=== PATIENT | female | born 1995 | race Caucasian/White ===

== ENCOUNTER 2018-05-03 11:14 | Emergency (ER) | END 2018-05-03 12:50 | disposition home or self-care (01) ==

== ENCOUNTER 2018-06-09 15:04 | Emergency (ER) | END 2018-06-09 16:55 | disposition home or self-care (01) ==

== ENCOUNTER 2018-10-09 17:39 | Emergency (ER) | payer MEDICAID, OTHER ==
[~2018-10-09] VITALS: Ht 147.3 cm; Wt 42.7 kg
[~2018-10-09 17:39] MED LIST: BACI28.34 TOP; CEPH-443 PO; IBUP-1561 PO; NEOM28OI2 TP
[2018-10-09 17:49] VITALS: Ht 147.3 cm; Wt 42.7 kg
[2018-10-09] MEDS ORDERED: LIDOCAINE 1% (MPF) 5 ML VIAL INFIL ONE (22:30)
[2018-10-09] MEDS ORDERED: CEPH-443 PO (23:05)
[2018-10-09] MEDS ORDERED: MUPI22OI2 TOP (23:05)
[2018-10-09] MEDS ORDERED: IBUP800T48 PO (23:05)
[2018-10-09 23:31] VITALS: BP 110/60; PULSE 82; RESP 16
--- NOTE | 2018-10-10 02:29 | ERD ---
ER Documentation Chief Complaint Chief Complaint L big toe pain and swelling HPI History of Present Illness: Patient coming in with complaint of pain/swelling to left great toe. She reports similar episode last year which required ER visit. Patient was given antibiotics and reports that paronychia was no longer present. Patient reports recent pedicure approximately 1 week ago, and then noticed pain 3 days ago. At home pharmacological/nonpharmacological treatment for symptoms: Denies Social History: Patient denies tobacco, alcohol, elicit drug use Allergies: NKDA Social Concerns: Denies ROS All systems reviewed and are negative except as per history of present illness. Medications Home Meds Active Scripts Ibuprofen* (Motrin*) 800 Mg Tab, 800 MG PO Q6H PRN for PAIN AND OR ELEVATED TEMP, #30 TAB Prov:HAY CALIX NP 10/09/18 Mupirocin* (Bactroban*) 2% -22 Gram Oint...g., 1 APPLIC TOP BID for toe infection for 7 Days, EA Prov:HAY CALIX NP 10/09/18 Cephalexin* (Keflex*) 500 Mg Capsule, 500 MG PO Q8 for 5 Days, CAP Prov:HAY CALIX V ULTRASOUND TECHNOL 10/09/18 Neomycin Lechuga/Bacitrac Zn/Poly (Triple Antibiotic Ointment) 28 Gm Oint...g., 28 GM TP QID for 5 Days Prov:CAROLINA AMADOR MD 06/09/18 Ibuprofen* (Motrin*) 400 Mg Tab, 400 MG PO Q8, #12 TAB Prov:TYESHA NEFF MD 05/03/18 Bacitracin* (Bacitracin Zinc Oint*) 28.35 Gm Oint, 1 APPLIC TOP TID for 7 Days, #1 TUB APPLY TO Prov:TYESHA NEFF MD 05/03/18 Cephalexin* (Keflex*) 500 Mg Capsule, 500 MG PO TID for 7 Days, CAP Prov:TYESHA NEFF MD 05/03/18 Ibuprofen* (Motrin*) 400 Mg Tab, 400 MG PO Q6, #14 TAB Prov:CAROLINA AMADOR MD 11/22/15 Allergies Allergies: Coded Allergies: No Known Drug Allergy (Verified Allergy, Unknown, 06/09/18) PMhx/Soc History of Surgery: No Anesthesia Reaction: No Hx Neurological Disorder: No Hx Respiratory Disorders: No Hx Cardiac Disorders: No Hx Psychiatric Problems: No Hx Miscellaneous Medical Probl: No Hx Alcohol Use: Yes (social) Hx Substance Use: No Hx Tobacco Use: No Smoking Status: Never smoker FmHx Family History: No diabetes Physical Exam Vitals Vital Signs Date Temp Pulse Resp B/P (MAP) Pulse Ox O2 O2 Flow FiO2 Time Delivery Rate 10/09/18 98.7 82 16 110/60 98 Room Air 23:31 (77) 10/09/18 99.2 85 20 103/67 99 17:49 (79) Physical Exam Const: No acute distress Head: Atraumatic Eyes: Normal Conjunctiva ENT: Normal External Ears, Nose and Mouth. Neck: Full range of motion. No meningismus. Resp: Clear to auscultation bilaterally Cardio: Regular rate and rhythm, no murmurs Abd: Soft, non tender, non distended. Normal bowel sounds Skin: No petechiae or rashes Back: No midline or flank tenderness Ext: No cyanosis, or edema. Paronychia noted to lateral aspect of left great toe, upon palpation yellow purulent fluid noted. Neur: Awake and alert Psych: Normal Mood and Affect Results 24 hrs Current Medications Medications Dose Sig/Navya Start Time Status Last (Trade) Ordered Route PRN Stop Time Admin Dose Reason Admin Lidocaine 10 ml ONCE ONCE 10/09/18 DC 10/09/18 (Xylocaine INFIL 22:30 22:37 1% (Mpf)) 10/09/18 22:31 Procedures/MDM ED course includes a thorough examination and history. ED course includes incision and drainage. Abscess Incision and Drainage with irrigation by me: Location: Left great toe Anesthesia: 1% Lidocaine, digital block Technique: Sterile technique, 20-gauge used to drain, purulent fluid expelled Packing: None Complications: Neurovascularly intact post procedure Low suspicion for [xxx] Otherwise healthy patient presenting with constellation of symptoms likely representing uncomplicated paronychia as characterized by history, physical exam findings [, radiologic/lab findings]. No respiratory distress, otherwise relatively well appearing and nontoxic. Patient educated on diagnoses, prescriptions, follow-up care, return precautions. Strict return precautions given for worsening condition; questions answered discharge. Disposition for discharge with followup in 2 days with PCP/clinic. Departure Diagnosis: Primary Impression: Paronychia of great toe, left Condition: Stable Patient Instructions: Paronychia Referrals: [facility] YOU HAVE RECEIVED A MEDICAL SCREENING EXAM AND THE RESULTS INDICATE THAT YOU DO NOT HAVE A CONDITION THAT REQUIRES URGENT TREATMENT IN THE EMERGENCY DEPARTMENT. FURTHER EVALUATION AND TREATMENT OF YOUR CONDITION CAN WAIT UNTIL YOU ARE SEEN IN YOUR DOCTORS OFFICE WITHIN THE NEXT 1-2 DAYS. IT IS YOUR RESPONSIBILITY TO MAKE AN APPOINTMENT FOR FOLOW-UP CARE. IF YOU HAVE A PRIMARY DOCTOR --you should call your primary doctor and schedule an appointment IF YOU DO NOT HAVE A PRIMARY DOCTOR YOU CAN CALL OUR PHYSICIAN REFERRAL HOTLINE AT IF YOU CAN NOT AFFORD TO SEE A PHYSICIAN YOU CAN CHOSE FROM THE FOLLOWING [facility] [address] [place] [address] [facility]. [facility] [address] [facility] [address] [facility] [address]. [facility] [address] [facility] [facility] YOU HAVE RECEIVED A MEDICAL SCREENING EXAM AND THE RESULTS INDICATE THAT YOU DO NOT HAVE A CONDITION THAT REQUIRES URGENT TREATMENT IN THE EMERGENCY DEPARTMENT. FURTHER EVALUATION AND TREATMENT OF YOUR CONDITION CAN WAIT UNTIL YOU ARE SEEN IN YOUR DOCTORS OFFICE WITHIN THE NEXT 1-2 DAYS. IT IS YOUR RESPONSIBILITY TO MAKE AN APPOINTMENT FOR FOLOW-UP CARE. IF YOU HAVE A PRIMARY DOCTOR --you should call your primary doctor and schedule and appointment IF YOU DO NOT HAVE A PRIMARY DOCTOR YOU CAN CALL OUR PHYSICIAN REFERRAL HOTLINE AT . IF YOU CAN NOT AFFORD TO SEE A PHYSICIAN YOU CAN CHOSE FROM THE FOLLOWING [facility] INSTITUTIONS: [facility] [address] [place] [address] [facility] [address] [place] [address] [facility] + [facility] [address] [place] [address] Additional Instructions: Call your primary care doctor TOMORROW for an appointment during the next 2-3 days.See the doctor sooner or return here if your condition worsens before your appointment time. Return to ER for any signs of worsening infection, fever, chills, increased redness and erythema. Do warm foot soaks 2-3 times daily; 20 minutes each with water. HAY CALIX NP Oct 10, 2018 02:29
== END 2018-10-09 23:31 | disposition home or self-care (01) ==
LOC: FTE 17:39
DX: L03.032 Cellulitis of left toe (principal)
CPT/HCPCS: 10060; Z7502; Z7610